=== PATIENT | male | born 1995 | race Two or more races ===

== ENCOUNTER → 2016-07-28 | Outpatient (CLI) | payer BC ==
[2016-07-28 12:53] LABS: HEMATOCRIT 43.8 % (37.9-51.0); HEMOGLOBIN 14.6 g/dL (13.5-17.0); MEAN CORPUSCULAR HGB CONC 33.3 g/dL (32.0-36.0); MEAN CORPUSCULAR VOLUME 78 fl (80-97); RED CELL DISTRIBUTION WIDTH 16.4 % (11.5-14.0); WHITE BLOOD COUNT 3.2 10^3/uL (4.0-10.5)
[2016-07-28 13:13] LABS: BASOPHILS % (MANUAL) 0 % (0-2); EOSINOPHILS % (MANUAL) 1 % (0-6); LYMPHOCYTES % (MANUAL) 40 % (13-45); TOTAL CELLS COUNTED 100
[2016-07-28 13:15] LABS: ANISOCYTOSIS 1+; MICROCYTOSIS SLIGHT
[2016-07-28 13:29] LABS: ALANINE AMINOTRANSFERASE 37 U/L (21-72); ALBUMIN 4.5 g/dL (3.5-5.0); ALKALINE PHOSPHATASE 84 U/L (38-126); ANION GAP 11 (5-19); ASPARTATE AMINO TRANSFERASE 35 U/L (17-59); BILIRUBIN,TOTAL 1.2 mg/dL (0.2-1.3); BLOOD UREA NITROGEN 14 mg/dL (7-20); CALCIUM 10.3 mg/dL (8.4-10.2); CARBON DIOXIDE 29 mmol/L (22-30); CHLORIDE 104 mmol/L (98-107); CREATININE RESULT 1.04 mg/dL (0.52-1.25); GLUCOSE 89 mg/dL (75-110); POTASSIUM 4.7 mmol/L (3.6-5.0); SODIUM 144.2 mmol/L (137-145); TOTAL PROTEIN 8.1 g/dL (6.3-8.2)
[2016-07-29 16:40] LABS: ALBUMIN 3 3.8 g/dL (2.9-4.4); ALPHA-1-GLOBULIN 0.2 g/dL (0.0-0.4); ALPHA-2-GLOBULIN 3 0.5 g/dL (0.4-1.0); BETA GLOBULIN 1.1 g/dL (0.7-1.3); GLOBULIN TTL 3.5 g/dL (2.2-3.9); IMMUNOGLOBULIN A 271 mg/dL (90-386); IMMUNOGLOBULIN G 1728 mg/dL (700-1600); IMMUNOGLOBULIN M 122 mg/dL (20-172); MONOCLONAL-SPIKE Not Observed g/dL (Not Observed); PROTEIN TOTAL SERUM 7.3 g/dL (6.0-8.5)
== END ==
LOC: OD 11:45
PROVIDERS: ATTEND Specialist
DX: D72.819 Decreased white blood cell count, unspecified (principal)
CPT/HCPCS: 36415; 80053; 82728; 83540; 83550; 85025; 86320

== ENCOUNTER → 2016-09-22 | Outpatient (CLI) | payer BC ==
[2016-09-22 11:41] LABS: ABSOLUTE LYMPHOCYTES (AUTO) 1.6 10^3/uL (0.5-4.7); ABSOLUTE MONOCYTES (AUTO) 0.4 10^3/uL (0.1-1.4); ABSOLUTE NEUT (AUTO) 1.5 10^3/uL (1.7-8.2); EOSINOPHILS % (AUTO) 1.2 % (0-6); HEMATOCRIT 42.4 % (37.9-51.0); HEMOGLOBIN 14.2 g/dL (13.5-17.0); HGB HCT DIFFERENCE 0.2; LYMPHOCYTES % (AUTO) 45.7 % (13-45); MEAN CORPUSCULAR HEMOGLOBIN 26.3 pg (27.0-33.4); MEAN CORPUSCULAR HGB CONC 33.5 g/dL (32.0-36.0); MEAN CORPUSCULAR VOLUME 79 fl (80-97); MONOCYTES % (AUTO) 10.5 % (3-13); RED CELL DISTRIBUTION WIDTH 14.7 % (11.5-14.0); SEGMENTED NEUTROPHILS % (AUTO) 41.6 % (42-78); WHITE BLOOD COUNT 3.5 10^3/uL (4.0-10.5)
[2016-09-22 11:56] LABS: ALANINE AMINOTRANSFERASE 33 U/L (21-72); ALBUMIN 4.4 g/dL (3.5-5.0); ALKALINE PHOSPHATASE 82 U/L (38-126); ANION GAP 12 (5-19); ASPARTATE AMINO TRANSFERASE 35 U/L (17-59); BILIRUBIN,DIRECT 0.4 mg/dL (0.0-0.4); BLOOD UREA NITROGEN 12 mg/dL (7-20); CALCIUM 9.7 mg/dL (8.4-10.2); CARBON DIOXIDE 29 mmol/L (22-30); CHLORIDE 105 mmol/L (98-107); CREATININE RESULT 1.18 mg/dL (0.52-1.25); GLUCOSE 91 mg/dL (75-110); POTASSIUM 4.9 mmol/L (3.6-5.0); SODIUM 145.7 mmol/L (137-145); TOTAL PROTEIN 8.3 g/dL (6.3-8.2)
[2016-09-22 12:43] LABS: ADD HIVPANEL? YES
== END ==
LOC: OD 10:25
PROVIDERS: ATTEND Specialist
DX: D72.819 Decreased white blood cell count, unspecified (principal); D50.9 Iron deficiency anemia, unspecified
CPT/HCPCS: 36415; 80053; 82728; 83540; 83550; 85025; 86701; 86702

== ENCOUNTER → 2016-10-14 | Outpatient (CLI) | payer BC ==
[2016-10-15 06:53] LABS: CHLAM PCR NOT DETECTED (NOT DETECT)
[2016-10-17 18:52] LABS: ALANINE AMINOTRANSFERASE 41 U/L (21-72); ALBUMIN 4.1 g/dL (3.5-5.0); ALKALINE PHOSPHATASE 79 U/L (38-126); ANION GAP 13 (5-19); ASPARTATE AMINO TRANSFERASE 33 U/L (17-59); BILIRUBIN,DIRECT 0.3 mg/dL (0.0-0.4); BILIRUBIN,TOTAL 0.7 mg/dL (0.2-1.3); BLOOD UREA NITROGEN 11 mg/dL (7-20); CALCIUM 9.8 mg/dL (8.4-10.2); CARBON DIOXIDE 28 mmol/L (22-30); CHLORIDE 105 mmol/L (98-107); CREATININE RESULT 1.19 mg/dL (0.52-1.25); GLUCOSE 97 mg/dL (75-110); POTASSIUM 4.8 mmol/L (3.6-5.0); SODIUM 145.7 mmol/L (137-145); TOTAL PROTEIN 7.8 g/dL (6.3-8.2)
== END ==
LOC: OD 21:35
PROVIDERS: ATTEND Internal Medicine Infectious Disease
DX: B20 Human immunodeficiency virus [HIV] disease (principal); Z11.3 Encounter for screening for infections with a predominantly sexual mode of transmission; Z11.59 Encounter for screening for other viral diseases
CPT/HCPCS: 36415; 80053; 86317; 86360; 86480; 86592; 86708; 86709; 86803; 86804; 87340; 87491; 87536; 87591

== ENCOUNTER → 2016-12-15 | Outpatient (CLI) | payer BC ==
[2016-12-15 09:13] LABS: ABSOLUTE EOSINOPHILS # (AUTO) 0.1 10^3/uL (0.0-0.6); ABSOLUTE LYMPHOCYTES (AUTO) 1.8 10^3/uL (0.5-4.7); ABSOLUTE MONOCYTES (AUTO) 0.3 10^3/uL (0.1-1.4); ABSOLUTE NEUT (AUTO) 2.4 10^3/uL (1.7-8.2); BASOPHILS % (AUTO) 0.8 % (0-2); EOSINOPHILS % (AUTO) 1.7 % (0-6); HEMATOCRIT 44.1 % (37.9-51.0); HEMOGLOBIN 14.6 g/dL (13.5-17.0); HGB HCT DIFFERENCE -0.3; LYMPHOCYTES % (AUTO) 39.4 % (13-45); MEAN CORPUSCULAR HEMOGLOBIN 25.9 pg (27.0-33.4); MEAN CORPUSCULAR HGB CONC 33.2 g/dL (32.0-36.0); MEAN CORPUSCULAR VOLUME 78 fl (80-97); MONOCYTES % (AUTO) 6.3 % (3-13); RED BLOOD COUNT 5.64 10^6/uL (4.35-5.55); SEGMENTED NEUTROPHILS % (AUTO) 51.8 % (42-78); WHITE BLOOD COUNT 4.6 10^3/uL (4.0-10.5)
[2016-12-15 09:39] LABS: ALANINE AMINOTRANSFERASE 42 U/L (21-72); ALBUMIN 4.1 g/dL (3.5-5.0); ALKALINE PHOSPHATASE 83 U/L (38-126); ANION GAP 11 (5-19); ASPARTATE AMINO TRANSFERASE 23 U/L (17-59); BILIRUBIN,DIRECT 0.4 mg/dL (0.0-0.4); BILIRUBIN,TOTAL 0.6 mg/dL (0.2-1.3); BLOOD UREA NITROGEN 12 mg/dL (7-20); CALCIUM 9.5 mg/dL (8.4-10.2); CARBON DIOXIDE 26 mmol/L (22-30); CHLORIDE 106 mmol/L (98-107); CREATININE RESULT 1.24 mg/dL (0.52-1.25); GLUCOSE 96 mg/dL (75-110); POTASSIUM 4.5 mmol/L (3.6-5.0); SODIUM 143.3 mmol/L (137-145); TOTAL PROTEIN 8.1 g/dL (6.3-8.2)
[2016-12-15 09:40] LABS: ALANINE AMINOTRANSFERASE 42 U/L (21-72); ALBUMIN 4.1 g/dL (3.5-5.0); ALKALINE PHOSPHATASE 83 U/L (38-126); ANION GAP 11 (5-19); ASPARTATE AMINO TRANSFERASE 23 U/L (17-59); BILIRUBIN,DIRECT 0.4 mg/dL (0.0-0.4); BILIRUBIN,TOTAL 0.6 mg/dL (0.2-1.3); BLOOD UREA NITROGEN 12 mg/dL (7-20); CALCIUM 9.5 mg/dL (8.4-10.2); CARBON DIOXIDE 26 mmol/L (22-30); CHLORIDE 106 mmol/L (98-107); CREATININE RESULT 1.24 mg/dL (0.52-1.25); GLUCOSE 96 mg/dL (75-110); POTASSIUM 4.5 mmol/L (3.6-5.0); SODIUM 143.3 mmol/L (137-145); TOTAL PROTEIN 8.1 g/dL (6.3-8.2)
[2016-12-16 08:51] LABS: HEPATITIS A AB TOTAL Negative (Negative)
[2016-12-17 10:39] LABS: HIV-1 RNA LOG10.. 2.322 (.); HIV-1 RNA PCR QUANT 210 copies/mL (.)
== END ==
LOC: OD 07:33
PROVIDERS: ATTEND Internal Medicine Infectious Disease
DX: B20 Human immunodeficiency virus [HIV] disease (principal); D50.9 Iron deficiency anemia, unspecified
CPT/HCPCS: 36415; 80053; 82728; 83540; 83550; 85025; 86708; 86709; 87536

== ENCOUNTER → 2017-01-22 | Outpatient (CLI) | payer BC ==
[2017-01-22 08:51] LABS: ALANINE AMINOTRANSFERASE 32 U/L (21-72); ALBUMIN 3.9 g/dL (3.5-5.0); ALKALINE PHOSPHATASE 93 U/L (38-126); ANION GAP 9 (5-19); ASPARTATE AMINO TRANSFERASE 32 U/L (17-59); BILIRUBIN,DIRECT 0.4 mg/dL (0.0-0.4); BILIRUBIN,TOTAL 0.7 mg/dL (0.2-1.3); BLOOD UREA NITROGEN 13 mg/dL (7-20); CARBON DIOXIDE 30 mmol/L (22-30); CHLORIDE 104 mmol/L (98-107); CREATINE KINASE 629 U/L (55-170); CREATININE RESULT 1.37 mg/dL (0.52-1.25); GLUCOSE 101 mg/dL (75-110); POTASSIUM 4.5 mmol/L (3.6-5.0); SODIUM 142.9 mmol/L (137-145); TOTAL PROTEIN 7.5 g/dL (6.3-8.2)
[2017-01-24 07:39] LABS: HIV-1 RNA LOG10.. 1.301 (.); HIV-1 RNA PCR QUANT 20 copies/mL (.)
[2017-01-24 21:07] LABS: ABSOLUTE CD 4 HELPER 356 /uL (359-1519); CD BASOPHILS 1 % (.); CD EOSINOPHILS 2 % (.); CD MONOCYTES 6 % (.); CD NEUTROPHILS 46 % (.); HEMATOCRIT . 41.8 % (37.5-51.0); HEMOGLOBIN 13.8 g/dL (12.6-17.7); IMMATURE GRANULOCYTES 0 % (.); LYMPHS(ABSOLUTE) 1.5 x10E3/uL (0.7-3.1); MCH 26.7 pg (26.6-33.0); MCV 81 fL (79-97); NEUTROPHILS(ABSOLUTE) 1.6 x10E3/uL (1.4-7.0); PLATELETS 240 x10E3/uL (150-379); RBC 5.16 x10E6/uL (4.14-5.80); WBC 3.4 x10E3/uL (3.4-10.8)
== END ==
LOC: OD 07:22
PROVIDERS: ATTEND Internal Medicine Infectious Disease
DX: B20 Human immunodeficiency virus [HIV] disease (principal)
CPT/HCPCS: 36415; 80053; 82550; 86360; 87536

== ENCOUNTER → 2017-03-09 | Outpatient (CLI) | payer BC ==
[2017-03-09 09:42] LABS: ALANINE AMINOTRANSFERASE 36 U/L (21-72); ALKALINE PHOSPHATASE 85 U/L (38-126); ANION GAP 11 (5-19); ASPARTATE AMINO TRANSFERASE 27 U/L (17-59); BILIRUBIN,DIRECT 0.4 mg/dL (0.0-0.4); BILIRUBIN,TOTAL 0.5 mg/dL (0.2-1.3); BLOOD UREA NITROGEN 12 mg/dL (7-20); CALCIUM 9.6 mg/dL (8.4-10.2); CARBON DIOXIDE 27 mmol/L (22-30); CHLORIDE 109 mmol/L (98-107); CREATINE KINASE 528 U/L (55-170); GLUCOSE 129 mg/dL (75-110); POTASSIUM 4.4 mmol/L (3.6-5.0); SODIUM 147.1 mmol/L (137-145); TOTAL PROTEIN 7.3 g/dL (6.3-8.2)
[2017-03-10 11:40] LABS: ABSOLUTE CD 4 HELPER 437 /uL (359-1519); CD BASOPHILS 1 % (Not Estab.); CD EOSINOPHILS 1 % (Not Estab.); CD MONOCYTES 6 % (Not Estab.); CD NEUTROPHILS 46 % (Not Estab.); HEMATOCRIT . 40.7 % (37.5-51.0); HEMOGLOBIN 13.5 g/dL (12.6-17.7); IMMATURE GRANULOCYTES 0 % (Not Estab.); LYMPHS(ABSOLUTE) 1.8 x10E3/uL (0.7-3.1); MCH 26.1 pg (26.6-33.0); MCHC 33.2 g/dL (31.5-35.7); MCV 79 fL (79-97); NEUTROPHILS(ABSOLUTE) 1.8 x10E3/uL (1.4-7.0); PLATELETS 259 x10E3/uL (150-379); RBC 5.17 x10E6/uL (4.14-5.80); RDW 16.2 % (12.3-15.4); WBC 3.8 x10E3/uL (3.4-10.8)
[2017-03-11 07:14] LABS: HIV-1 RNA LOG10.. 1.699 (.); HIV-1 RNA PCR QUANT 50 copies/mL (.)
== END ==
LOC: LAB 08:54
PROVIDERS: ATTEND Internal Medicine Infectious Disease
DX: B20 Human immunodeficiency virus [HIV] disease (principal)
CPT/HCPCS: 36415; 80053; 82550; 86360; 87536

== ENCOUNTER → 2017-06-13 | Outpatient (CLI) | payer BC ==
[2017-06-13 09:08] LABS: ALANINE AMINOTRANSFERASE 38 U/L (21-72); ALBUMIN 4.5 g/dL (3.5-5.0); ALKALINE PHOSPHATASE 77 U/L (38-126); ANION GAP 7 (5-19); ASPARTATE AMINO TRANSFERASE 33 U/L (17-59); BILIRUBIN,DIRECT 0.3 mg/dL (0.0-0.4); BILIRUBIN,TOTAL 0.6 mg/dL (0.2-1.3); BLOOD UREA NITROGEN 12 mg/dL (7-20); CALCIUM 10.2 mg/dL (8.4-10.2); CARBON DIOXIDE 34 mmol/L (22-30); CHLORIDE 104 mmol/L (98-107); CREATINE KINASE 582 U/L (55-170); GLUCOSE 111 mg/dL (75-110); POTASSIUM 4.1 mmol/L (3.6-5.0); SODIUM 145.2 mmol/L (137-145); TOTAL PROTEIN 7.6 g/dL (6.3-8.2)
[2017-06-15 12:38] LABS: % CD 4 POS LYMPH 25.6 % (30.8-58.5); % CD 8 POS LYMPH 27.4 % (12.0-35.5); ABSOLUTE CD 4 HELPER 384 /uL (359-1519); ABSOLUTE CD 8 SUPPRESSOR 411 /uL (109-897); CD BASOPHILS 1 % (Not Estab.); CD EOSINOPHILS 1 % (Not Estab.); CD MONOCYTES 5 % (Not Estab.); CD NEUTROPHILS 47 % (Not Estab.); CD4/CD8 RATIO 0.93 (0.92-3.72); HEMOGLOBIN 13.7 g/dL (13.0-17.7); IMMATURE GRANULOCYTES 0 % (Not Estab.); LYMPHS(ABSOLUTE) 1.5 x10E3/uL (0.7-3.1); MCH 25.8 pg (26.6-33.0); MCHC 32.2 g/dL (31.5-35.7); MCV 80 fL (79-97); MONOCYTES(ABSOLUTE) 0.2 x10E3/uL (0.1-0.9); NEUTROPHILS(ABSOLUTE) 1.6 x10E3/uL (1.4-7.0); PLATELETS 249 x10E3/uL (150-379); RBC 5.32 x10E6/uL (4.14-5.80); RDW 16.1 % (12.3-15.4); WBC 3.3 x10E3/uL (3.4-10.8)
[2017-06-16 07:38] LABS: HIV-1 RNA LOG10.. 1.301 (.); HIV-1 RNA PCR QUANT 20 copies/mL (.)
== END ==
LOC: LAB 08:06
PROVIDERS: ATTEND Internal Medicine Infectious Disease
DX: B20 Human immunodeficiency virus [HIV] disease (principal)
CPT/HCPCS: 36415; 80053; 82550; 86360; 87536

== ENCOUNTER → 2017-09-14 | Outpatient (CLI) | payer BC ==
[2017-09-14 09:13] LABS: ALANINE AMINOTRANSFERASE 48 U/L (21-72); ALBUMIN 4.2 g/dL (3.5-5.0); ALKALINE PHOSPHATASE 78 U/L (38-126); ANION GAP 10 (5-19); ASPARTATE AMINO TRANSFERASE 35 U/L (17-59); BILIRUBIN,DIRECT 0.2 mg/dL (0.0-0.4); BILIRUBIN,TOTAL 0.6 mg/dL (0.2-1.3); BLOOD UREA NITROGEN 14 mg/dL (7-20); CALCIUM 9.8 mg/dL (8.4-10.2); CARBON DIOXIDE 29 mmol/L (22-30); CHLORIDE 106 mmol/L (98-107); CREATINE KINASE 557 U/L (55-170); GLUCOSE 98 mg/dL (75-110); POTASSIUM 4.3 mmol/L (3.6-5.0); SODIUM 145.1 mmol/L (137-145); TOTAL PROTEIN 7.2 g/dL (6.3-8.2)
[2017-09-15 15:38] LABS: % CD 4 POS LYMPH 23.8 % (30.8-58.5); ABSOLUTE CD 4 HELPER 381 /uL (359-1519); ABSOLUTE CD 8 SUPPRESSOR 416 /uL (109-897); CD BASOPHILS 1 % (Not Estab.); CD EOSINOPHILS 1 % (Not Estab.); CD MONOCYTES 7 % (Not Estab.); CD NEUTROPHILS 43 % (Not Estab.); CD4/CD8 RATIO 0.92 (0.92-3.72); HEMOGLOBIN 15.3 g/dL (13.0-17.7); IMMATURE GRANULOCYTES 0 % (Not Estab.); LYMPHS(ABSOLUTE) 1.6 x10E3/uL (0.7-3.1); MCH 27.3 pg (26.6-33.0); MCV 80 fL (79-97); MONOCYTES(ABSOLUTE) 0.3 x10E3/uL (0.1-0.9); NEUTROPHILS(ABSOLUTE) 1.5 x10E3/uL (1.4-7.0); PLATELETS 234 x10E3/uL (150-379); RDW 15.6 % (12.3-15.4); WBC 3.4 x10E3/uL (3.4-10.8)
[2017-09-16 07:12] LABS: HIV-1 RNA PCR QUANT <20 copies/mL (.)
== END ==
LOC: OD 07:59
PROVIDERS: ATTEND Internal Medicine Infectious Disease
DX: B20 Human immunodeficiency virus [HIV] disease (principal)
CPT/HCPCS: 36415; 80053; 82550; 86360; 87536

== ENCOUNTER → 2017-12-14 | Outpatient (CLI) | payer BC ==
[2017-12-14 08:29] LABS: APPEARANCE,URINE CLEAR; BILIRUBIN,URINE NEGATIVE (NEGATIVE); COLOR,URINE YELLOW; GLUCOSE, URINE NEGATIVE (NEGATIVE); KETONES,URINE NEGATIVE (NEGATIVE); LEUKOCYTE ESTERASE,URINE NEGATIVE (NEGATIVE); NITRITE,URINE NEGATIVE (NEGATIVE); PROTEIN,URINE NEGATIVE (NEGATIVE); URINE SPECIFIC GRAVITY 1.006
[2017-12-14 08:48] LABS: ALANINE AMINOTRANSFERASE 41 U/L (21-72); ALBUMIN 3.8 g/dL (3.5-5.0); ALKALINE PHOSPHATASE 79 U/L (38-126); ANION GAP 8 (5-19); ASPARTATE AMINO TRANSFERASE 35 U/L (17-59); BILIRUBIN,DIRECT 0.3 mg/dL (0.0-0.4); BILIRUBIN,TOTAL 1.1 mg/dL (0.2-1.3); BLOOD UREA NITROGEN 11 mg/dL (7-20); CALCIUM 9.4 mg/dL (8.4-10.2); CARBON DIOXIDE 31 mmol/L (22-30); CHLORIDE 105 mmol/L (98-107); CREATINE KINASE 425 U/L (55-170); GLUCOSE 93 mg/dL (75-110); POTASSIUM 4.5 mmol/L (3.6-5.0); SODIUM 144.2 mmol/L (137-145); TOTAL PROTEIN 7.1 g/dL (6.3-8.2)
[2017-12-14 11:07] LABS: CHLAM PCR NOT DETECTED (NOT DETECT); GON PCR NOT DETECTED (NOT DETECT)
[2017-12-15 14:38] LABS: % CD 4 POS LYMPH 26.2 % (30.8-58.5); ABSOLUTE CD 4 HELPER 445 /uL (359-1519); ABSOLUTE CD 8 SUPPRESSOR 442 /uL (109-897); CD BASOPHILS 1 % (Not Estab.); CD EOSINOPHILS 1 % (Not Estab.); CD MONOCYTES 9 % (Not Estab.); CD NEUTROPHILS 40 % (Not Estab.); CD4/CD8 RATIO 1.01 (0.92-3.72); IMMATURE GRANULOCYTES 0 % (Not Estab.); LYMPHS(ABSOLUTE) 1.7 x10E3/uL (0.7-3.1); MCH 26.9 pg (26.6-33.0); MCHC 33.7 g/dL (31.5-35.7); MCV 80 fL (79-97); MONOCYTES(ABSOLUTE) 0.3 x10E3/uL (0.1-0.9); NEUTROPHILS(ABSOLUTE) 1.4 x10E3/uL (1.4-7.0); PLATELETS 277 x10E3/uL (150-379); WBC 3.4 x10E3/uL (3.4-10.8)
== END ==
LOC: OD 07:26
PROVIDERS: ATTEND Internal Medicine Infectious Disease
DX: B20 Human immunodeficiency virus [HIV] disease (principal); Z11.3 Encounter for screening for infections with a predominantly sexual mode of transmission
CPT/HCPCS: 36415; 80053; 81001; 82550; 86360; 86592; 87491; 87536; 87591

== ENCOUNTER → 2018-06-21 | Outpatient (CLI) | payer BC ==
[2018-06-21 10:11] LABS: ALANINE AMINOTRANSFERASE 34 U/L (21-72); ALBUMIN 4.8 g/dL (3.5-5.0); ALKALINE PHOSPHATASE 92 U/L (38-126); ANION GAP 9 (5-19); ASPARTATE AMINO TRANSFERASE 39 U/L (17-59); BILIRUBIN,DIRECT 0.3 mg/dL (0.0-0.4); BILIRUBIN,TOTAL 1.2 mg/dL (0.2-1.3); BLOOD UREA NITROGEN 14 mg/dL (7-20); CALCIUM 9.8 mg/dL (8.4-10.2); CARBON DIOXIDE 30 mmol/L (22-30); CHLORIDE 104 mmol/L (98-107); GLUCOSE 96 mg/dL (75-110); POTASSIUM 4.6 mmol/L (3.6-5.0); SODIUM 143.2 mmol/L (137-145)
[2018-06-22 11:40] LABS: % CD 4 POS LYMPH 26.6 % (30.8-58.5); % CD 8 POS LYMPH 21.4 % (12.0-35.5); ABSOLUTE CD 4 HELPER 532 /uL (359-1519); ABSOLUTE CD 8 SUPPRESSOR 428 /uL (109-897); CD BASOPHILS 0 % (Not Estab.); CD EOSINOPHILS 1 % (Not Estab.); CD MONOCYTES 9 % (Not Estab.); CD NEUTROPHILS 39 % (Not Estab.); CD4/CD8 RATIO 1.24 (0.92-3.72); HEMOGLOBIN 14.9 g/dL (13.0-17.7); IMMATURE GRANULOCYTES 0 % (Not Estab.); MCH 27.2 pg (26.6-33.0); MCHC 33.2 g/dL (31.5-35.7); MCV 82 fL (79-97); MONOCYTES(ABSOLUTE) 0.3 x10E3/uL (0.1-0.9); NEUTROPHILS(ABSOLUTE) 1.5 x10E3/uL (1.4-7.0); PLATELETS 261 x10E3/uL (150-379); RBC 5.48 x10E6/uL (4.14-5.80); WBC 3.8 x10E3/uL (3.4-10.8)
[2018-06-23 08:16] LABS: HIV-1 RNA PCR QUANT <20 copies/mL (.)
== END ==
LOC: LAB 08:34
PROVIDERS: ATTEND Internal Medicine Infectious Disease
DX: B20 Human immunodeficiency virus [HIV] disease (principal)
CPT/HCPCS: 36415; 80053; 86360; 87536

== ENCOUNTER → 2018-12-20 | Outpatient (CLI) | payer BC ==
[2018-12-20 09:23] LABS: ALANINE AMINOTRANSFERASE 37 U/L (21-72); ALBUMIN 4.5 g/dL (3.5-5.0); ALKALINE PHOSPHATASE 99 U/L (38-126); ANION GAP 11 (5-19); ASPARTATE AMINO TRANSFERASE 38 U/L (17-59); BILIRUBIN,DIRECT 0.3 mg/dL (0.0-0.4); BILIRUBIN,TOTAL 0.7 mg/dL (0.2-1.3); BLOOD UREA NITROGEN 14 mg/dL (7-20); CALCIUM 9.7 mg/dL (8.4-10.2); CARBON DIOXIDE 26 mmol/L (22-30); CHLORIDE 106 mmol/L (98-107); GLUCOSE 99 mg/dL (75-110); POTASSIUM 4.2 mmol/L (3.6-5.0); TOTAL PROTEIN 7.7 g/dL (6.3-8.2)
[2018-12-20 10:22] LABS: CHLAM PCR NOT DETECTED (NOT DETECT)
[2018-12-22 11:20] LABS: HIV-1 RNA PCR QUANT <20 copies/mL (.)
== END ==
LOC: LAB 08:40
PROVIDERS: ATTEND Internal Medicine Infectious Disease
DX: B20 Human immunodeficiency virus [HIV] disease (principal); Z11.3 Encounter for screening for infections with a predominantly sexual mode of transmission
CPT/HCPCS: 36415; 80053; 86360; 87491; 87536; 87591

== ENCOUNTER → 2019-04-18 | Outpatient (CLI) | payer BC ==
[2019-04-18 10:34] LABS: ALBUMIN 4.2 g/dL (3.5-5.0); ALKALINE PHOSPHATASE 96 U/L (38-126); ANION GAP 8 (5-19); ASPARTATE AMINO TRANSFERASE 43 U/L (17-59); BILIRUBIN,DIRECT 0.1 mg/dL (0.0-0.4); BILIRUBIN,TOTAL 0.6 mg/dL (0.2-1.3); BLOOD UREA NITROGEN 14 mg/dL (7-20); CALCIUM 9.8 mg/dL (8.4-10.2); CARBON DIOXIDE 29 mmol/L (22-30); CHLORIDE 105 mmol/L (98-107); GLUCOSE 90 mg/dL (75-110); POTASSIUM 4.5 mmol/L (3.6-5.0); TOTAL PROTEIN 7.6 g/dL (6.3-8.2)
[2019-04-19 11:37] LABS: % CD 4 POS LYMPH 24.6 % (30.8-58.5); % CD 8 POS LYMPH 22.1 % (12.0-35.5); ABSOLUTE CD 4 HELPER 467 /uL (359-1519); ABSOLUTE CD 8 SUPPRESSOR 420 /uL (109-897); CD BASOPHILS 1 % (Not Estab.); CD EOSINOPHILS 1 % (Not Estab.); CD MONOCYTES 7 % (Not Estab.); CD NEUTROPHILS 42 % (Not Estab.); CD4/CD8 RATIO 1.11 (0.92-3.72); EOSINOPHILS (ABSOLUTE) 0.1 x10E3/uL (0.0-0.4); HEMOGLOBIN 14.5 g/dL (13.0-17.7); IMMATURE GRANULOCYTES 0 % (Not Estab.); LYMPHS(ABSOLUTE) 1.9 x10E3/uL (0.7-3.1); MCHC 33.1 g/dL (31.5-35.7); MCV 80 fL (79-97); PLATELETS 285 x10E3/uL (150-450); RBC 5.49 x10E6/uL (4.14-5.80); RDW 15.1 % (12.3-15.4); WBC 3.9 x10E3/uL (3.4-10.8)
[2019-04-20 07:06] LABS: HIV-1 RNA PCR QUANT <20 copies/mL (.)
== END ==
LOC: OD 08:55
PROVIDERS: ATTEND Internal Medicine Infectious Disease
DX: B20 Human immunodeficiency virus [HIV] disease (principal)
CPT/HCPCS: 36415; 80053; 86360; 87536